=== PATIENT | female | born 1955 | race Caucasian/White ===

== ENCOUNTER 2016-08-10 10:59 | Emergency (ER) | payer BC, OTHER ==
[~2016-08-10] VITALS: Ht 162.6 cm; Wt 79.4 kg
[~2016-08-10 10:59] MED LIST: AMOX500T PO; CALA180T PO; CLAR10TA7 PO; CLAR500T95 PO; FISH100020 PO; FLON0.053 EACH NARE; GLUCTAB PO; HYDR12.56 PO; LOSA50TA PO; OYST500T71 PO; PRIL20CA PO; TAB-TAB PO
[2016-08-10 11:06] VITALS: BP 134/78; PULSE 78; RESP 17; TEMP 98.1; O2SAT 96
[2016-08-10 11:50] LABS: BLOOD, URINE TRACE (NEG); GLUCOSE,URINE NEG (NEG); KETONE, URINE NEG (NEG); NITRITE,URINE NEG (NEG); PH, URINE 5.5 (5.0-8.5)
[2016-08-10 11:51] LABS: METHOD OF COLLECTION CLEAN CATCH; URINE COLOR YELLOW (YELLW/STRAW)
[2016-08-10 11:54] LABS: BACTERIA, URINE RARE /hpf; COMMENT (UR) CULT NOT INDICATED; CULTURE IF INDICATED CULT NOT INDICATED; RBC, URINE 0-3 /hpf (0-3); SQUAMOUS EPITHELIAL CELL URINE 0-5 /hpf (0-5); WBC, URINE 0-2 /hpf (0-5)
[2016-08-10] MEDS ORDERED: VERA120T3 PO (12:58)
[2016-08-10] MEDS ORDERED: METF500T PO (12:58)
[2016-08-10] MEDS ORDERED: HYDR12.56 PO (12:58)
[2016-08-10] MEDS ORDERED: LOSA50TA PO (12:59)
[2016-08-10] MEDS ORDERED: CALCTAB98 PO (12:59)
[2016-08-10] MEDS ORDERED: ATOR40TA16 PO (12:59)
[2016-08-10] MEDS ORDERED: FLUT50SP EACH NARE (12:59)
[2016-08-10] MEDS ORDERED: MULT1TAB84 PO (12:59)
[2016-08-10] MEDS ORDERED: CLAR10CA3 PO (12:59)
[2016-08-10] MEDS ORDERED: GLIM2TAB PO (12:59)
[2016-08-10] MEDS ORDERED: OMEP20TA PO (12:59)
[2016-08-10] MEDS ORDERED: OMEG100037 PO (12:59)
[2016-08-10] MEDS ORDERED: CYCL5TAB PO (13:06)
[2016-08-10] MEDS ORDERED: CIPR-9 PO (13:06)
[2016-08-10] MEDS ORDERED: HYDR-3516 PO (13:06)
--- NOTE | 2016-08-10 13:06 | PD ---
HPI Chief Complaint: Flank/Kidney Pain Time Seen by Provider: 13:00 Travel History International Travel<30 days: No Contact w/Intl Traveler<30days: No Traveled to known affect area: No History of Present Illness HPI Patient presents with complaints of right flank pain for 2 days. Admits to lifting her grandchildren frequently. Aggravated with twisting or turning. Aggravated with getting up from a seated position. Denies nausea vomiting diarrhea or fever. Denies any lower extremity weakness or muscle wasting. 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 Past Surgical History AICD: No Joint Replacement: No Pacemaker: No Other Surgery: No Social History Alcohol Use: No Tobacco Use: No Substance Use: No Allergies-Medications (Allergen,Severity, Reaction): Coded Allergies: No Known Allergies (Verified , 08/10/16) Reported Meds & Prescriptions Reported Meds & Active Scripts Active Reported Multivitamin Adults (Multiple Vitamins W/ Minerals) 1 Tab 1 Tab PO DAILY Calcium (Calcium Carbonate-Cholecalciferol) 1,250-125 Mg-Unit Tab 1 Tab PO BID Fish Oil 1000 mg ([place]-3 Fatty Acids) 1 Cap Cap 1 Cap PO BID Claritin (Loratadine) 10 Mg Cap 10 Mg PO DAILY Omeprazole 20 Mg Tab 20 Mg PO BID Fluticasone Nasal [place] 50 Mcg/Act Naspr 50 Mcg EACH NARE BID 50 mcg/spray Glimepiride 2 Mg Tab 2 Mg PO DAILY Take with breakfast or first main meal Atorvastatin (Atorvastatin Calcium) 40 Mg Tab 40 Mg PO HS Losartan (Losartan Potassium) 50 Mg Tab 50 Mg PO BID Verapamil (Verapamil HCl) 120 Mg Tab 180 Mg PO DAILY Hydrochlorothiazide 12.5 Mg Tab 12.5 Mg PO DAILY Metformin (Metformin HCl) 500 Mg Tab 1,000 Mg PO BIDPC With meals Review of Systems General / Constitutional: No: Fever Eyes: No: Visual changes HENT: No: Headaches Cardiovascular: No: Chest Pain or Discomfort Respiratory: No: Shortness of Breath Gastrointestinal: No: Abdominal Pain Genitourinary: No: Dysuria Musculoskeletal: No: Pain Skin: No Rash Neurologic: No: Weakness Psychiatric: No: Depression Endocrine: No: Polydipsia Hematologic/Lymphatic: No: Easy Bruising Physical Exam Narrative GENERAL: Well-nourished, well-developed patient. SKIN: Warm and dry. HEAD: Normocephalic. EYES: No scleral icterus. No injection or drainage. NECK: Supple, trachea midline. No JVD or lymphadenopathy. CARDIOVASCULAR: Regular rate and rhythm without murmurs, gallops, or rubs. RESPIRATORY: Breath sounds equal bilaterally. No accessory muscle use. GASTROINTESTINAL: Abdomen soft, non-tender, nondistended. MUSCULOSKELETAL: No cyanosis, or edema. BACK: Nontender without obvious deformity. No CVA tenderness. Examination the lower thoracic upper lumbar region reveals right sided paraspinous pain aggravated with palpation Data Data Last Documented VS Vital Signs Date Time Temp Pulse Resp B/P Pulse Ox O2 Delivery O2 Flow Rate FiO2 08/10/16 11:06 98.1 78 17 134/78 96 Orders Urinalysis - C+S If Indicated (08/10/16 11:12) Labs Laboratory Tests Test 08/10/16 11:14 Urine Collection Type CLEAN CATCH Urine Color YELLOW Urine Turbidity CLEAR Urine pH 5.5 Urine Specific [place] 1.010 Urine Protein NEG mg/dL Urine Glucose (UA) NEG mg/dL Urine Ketones NEG mg/dL Urine Occult Blood TRACE Urine Nitrite NEG Urine Bilirubin NEG Urine Leukocyte Esterase SMALL Urine RBC 0-3 /hpf Urine WBC 0-2 /hpf Urine Squamous Epithelial 0-5 /hpf Cells Urine Amorphous Sediment FEW Urine Bacteria RARE /hpf Microscopic Urinalysis Comment CULT NOT INDICATED MDM Medical Decision Making Medical Screen Exam Complete: Yes Emergency Medical Condition: Yes Differential Diagnosis Nephrolithiasis, hematuria, musculoskeletal Narrative Course Assessment and plan discussed with patient and at bedside Diagnosis Primary Impression: Musculoskeletal back pain Additional Impression: Hematuria Patient Instructions: General Instructions Additional Instructions: Encourage nonsteroidal anti-inflammatories warm heat gentle stretching and strengthening and massage. Encourage fluids and a cranberry supplement. Encouraged follow-up with PCP to assess resolution of hematuria. Med/Other Pt SpecificInfo: Prescription(s) given Scripts Cyclobenzaprine (Flexeril)5 Mg Tab5 Mg PO TID PRN (pain) #15 TAB Ref 0 Prov:Jamie Leija MD 08/10/16 Hydrocodone-Acetaminophen 5-325 mg Tab1 Tab PO Q4H PRN (PAIN) #15 TAB Ref 0 Prov:Jamie Leija MD 08/10/16 Ciprofloxacin (Cipro)500 Mg Usn471 Mg PO BID #6 TAB Ref 0 Prov:Jamie Leija MD 08/10/16 Disposition: 01 DISCHARGE HOME Condition: Good Jamie Leija MD Aug 10, 2016 13:06
[2016-08-10 13:26] VITALS: BP 130/72
== END 2016-08-10 13:27 | disposition home or self-care (01) ==
LOC: PHED 10:59
DX: M54.9 Dorsalgia, unspecified (principal); R31.9 Hematuria, unspecified; E78.00 Pure hypercholesterolemia, unspecified; E11.9 Type 2 diabetes mellitus without complications; I10 Essential (primary) hypertension; Z79.4 Long term (current) use of insulin
CPT/HCPCS: 81001; 99284